=== PATIENT | male | born 1955 | race African-American/Black ===

== ENCOUNTER 2017-05-29 09:53 | Emergency (ER) | payer MEDICAID ==
[~2017-05-29] VITALS: Ht 172.7 cm; Wt 66.0 kg
[2017-05-29 10:42] VITALS: BP 120/68
== END 2017-05-29 15:40 | disposition left against medical advice (07) ==
LOC: ER 10:57
DX: Z53.21 Procedure and treatment not carried out due to patient leaving prior to being seen by health care provider (principal)